=== PATIENT | male | born 1965 | race Caucasian/White ===

== ENCOUNTER → 2017-02-13 | Outpatient (CLI) | payer OTHER ==
--- NOTE | 2017-02-13 14:57 | REP ---
CT ABDOMEN PELVIS WITHOUT IV OR ORAL CONTRAST: Renal stone protocol. HISTORY: Hematuria. Question kidney stones. Right-sided pain. CT FINDINGS: Preliminary digital automat watcher radiograph shows an unremarkable bowel gas pattern. The lung bases show a 3 mm noncalcified pulmonary nodule in the left base on image #7 of 37, series 204 of today's study. Lung bases are otherwise clear. The liver and the spleen are normal in size, homogeneous in texture. Gallbladder is unremarkable. No pancreatic abnormality is observed. No adrenal lesion is seen. The kidneys are morphologically intact. No intrarenal calculus is observed on either side. No hydronephrosis is seen. A normal appendix is seen medial to the cecum. No retroperitoneal mass or adenopathy is observed. Small and large intestinal bowel loops are normal in appearance. Urinary bladder shows mild diffuse bladder wall thickening. No bladder calculus is observed. Prostate and seminal vesicles are unremarkable. No abdominal wall defect is seen. Bone window settings show no significant finding. IMPRESSION: No urinary tract calculus seen. Mild diffuse bladder wall thickening question cystitis. 3 mm noncalcified nodule in the left lower lobe of the lung. If the patient is considered low risk for pulmonary malignancy, no follow-up is required by Fleischner Society criteria. If the patient is considered high risk, a follow-up CT chest could be performed in [address] study abdomen and pelvis without IV contrast. Signed by Dru Lopez MD 02/13/2017 05:22 P
== END ==
LOC: M RAD 14:04
PROVIDERS: ATTEND Physician Assistant
DX: R31.9 Hematuria, unspecified (principal); R91.1 Solitary pulmonary nodule

== ENCOUNTER → 2018-08-08 | Outpatient (CLI) | payer OTHER | LOC: M RAD 19:59 | DX: M25.50 Pain in unspecified joint (principal); J40 Bronchitis, not specified as acute or chronic; M25.78 Osteophyte, vertebrae | CPT/HCPCS: 71046 ==

== ENCOUNTER → 2018-08-19 | Outpatient (CLI) | payer OTHER ==
[~2018-08-19] MED LIST: E-Z-GAS II EFFERVESCENT PACKET (SODIUM BICARB./CITRIC ACID/SIMETHICONE) As Ordered; E-Z-HD 98% w/w 340GM SUSP BTL As Ordered; E-Z-PAQUE 96% w/w SUSP 176GM BTL As Ordered
== END ==
LOC: M RAD 09:10
DX: K44.9 Diaphragmatic hernia without obstruction or gangrene (principal); K21.9 Gastro-esophageal reflux disease without esophagitis; K22.8 Other specified diseases of esophagus
CPT/HCPCS: 74241

== ENCOUNTER → 2018-08-26 | Outpatient (CLI) | payer OTHER ==
--- NOTE | 2018-08-26 10:46 | REP ---
MR LUMBAR SPINE WITHOUT CONTRAST: HISTORY: Back pain. A rudimentary disc is present at the S1-2 level. Decreased signal intensity on T2-weighted images is present in the L2-3 through L5-S1 intervertebral discs. The discs are decreased in height. These findings are consistent with disc degeneration. There is no disc bulge or herniation at the L1-2 level. The L1 nerves exit the neural foramina without compression. A diffuse disc bulge is present at the L2-3 level. There is minimal compression of the thecal sac. The L2 nerves exit the neural foramina without compression. A diffuse disc bulge is present at the L3-4 level. There is minimal compression of the thecal sac. There is hypertrophy of the posterior articulating facets. The L3 nerves exit the neural foramina without compression. A diffuse disc bulge is present at the L4-5 level. There is minimal compression of the thecal sac. There is hypertrophy of the posterior articulating facets. The L4 nerves exit the neural foramina without compression. A diffuse disc bulge and small left paracentral and intraforaminal disc protrusion are present at the L5-S1 level. There is minimal compression of the thecal sac and left S1 nerve as its exits the thecal sac. There is hypertrophy of the posterior articulating facets. The L5 nerves exit the neural foramina without compression. The conus medullaris is normal in appearance terminating at the level of the L2-3 intervertebral disc. Increased signal intensity on T2-weighted images is present in the endplates of the L2-4 vertebral bodies. This represents degenerative change. IMPRESSION: 1. Diffuse disc bulges at the L2-3 through L4-5 levels with minimal thecal sac compression. 2. Diffuse disc bulge and small left paracentral and intraforaminal disc protrusion at the L5-S1 level with minimal compression of the thecal sac and left S1 nerve as it exits the thecal sac. Electronically Signed by Nolberto Verde MD 08/26/2018 10:52 A
== END ==
LOC: M RAD 09:12
PROVIDERS: ATTEND Family Medicine
DX: M51.26 Other intervertebral disc displacement, lumbar region (principal); M51.27 Other intervertebral disc displacement, lumbosacral region

== ENCOUNTER 2019-10-19 17:40 | Emergency (ER) | payer OTHER ==
[~2019-10-19] VITALS: Ht 162.6 cm; Wt 63.1 kg
[2019-10-19] MEDS ORDERED: NS 1,000 ML IV SCH (17:52)
[2019-10-19] MEDS ORDERED: ASPIRIN 81 MG CHEW TABLET PO ONE (18:00)
[2019-10-19] MEDS ORDERED: GI COCKTAIL 50ML BTL(HYOSCYAMINE/MAALOX/LIDOCAINE VISCOUS)(1:3:1) PO ONE (18:00)
--- NOTE | 2019-10-19 18:19 | REP ---
Clinical: Chest pain . Comparison: 08/08/2018 . Technique: PA and lateral. Findings: The mediastinum and cardiac silhouette are normal. The lung ibanez are clear and without acute consolidation, effusion, or pneumothorax. The skeletal structures are intact and normal. Impression: 1. No acute cardiopulmonary process. Electronically Signed by Kelvin Caro MD 10/19/2019 06:11 P
[2019-10-19 18:36] LABS: BASO % 0.4 % (0.0-1.0); EOS # 0.2 10^3/uL (0.0-0.5); EOS % 2.9 % (0.0-3.0); HEMATOCRIT 42.6 % (42.0-52.0); HEMOGLOBIN 14.1 g/dl (13.5-17.5); LYMPH # 2.7 10^3/uL (1.5-5.0); LYMPH % 34.7 % (24.0-44.0); MEAN CORPUSCULAR HEMOGLOBIN 30.9 pg (27.0-33.0); MEAN CORPUSCULAR HGB CONC 33.1 g/dl (32.0-36.5); MEAN CORPUSCULAR VOLUME 93.2 fl (80.0-96.0); MONO # 0.6 10^3/uL (0.0-0.8); NEUTROPHILS # 4.3 10^3/uL (1.5-8.5); NEUTROPHILS % 54.7 % (36.0-66.0); PLATELET COUNT, AUTOMATED 300 10^3/uL (150-450); RED BLOOD COUNT 4.57 10^6/uL (4.30-6.10); WHITE BLOOD COUNT 7.8 10^3/uL (4.0-10.0)
[2019-10-19 18:57] LABS: INR 0.96; PROTHROMBIN TIME 12.4 SECONDS (11.8-14.0)
[2019-10-19 19:06] LABS: ALT/SGPT 29 U/L (12-78); BILIRUBIN,DIRECT 0.1 MG/DL (0.0-0.2); BILIRUBIN,TOTAL 0.5 MG/DL (0.2-1.0); BLOOD UREA NITROGEN 15 MG/DL (7-18); CALCIUM LEVEL 8.9 MG/DL (8.5-10.1); CARBON DIOXIDE LEVEL 27 MEQ/L (21-32); CHLORIDE LEVEL 104 MEQ/L (98-107); CK-MB VALUE MASS 1.9 NG/ML (<3.6); CPK CREATINE PHOSPHOKINASE 149 U/L (39-308); CREATININE FOR GFR 0.81 MG/DL (0.70-1.30); GLOMERULAR FILTRATION RATE > 60.0 (>56); GLUCOSE, FASTING 95 MG/DL (70-100); LIPASE 69 U/L (73-393); MB/CK RELATIVE INDEX 1.28 (< OR =4); NT-PRO BNP 19 PG/ML (<125); POTASSIUM SERUM 4.1 MEQ/L (3.5-5.1); SODIUM LEVEL 139 MEQ/L (136-145); TOTAL PROTEIN 7.1 GM/DL (6.4-8.2); TROPONIN I < 0.02 NG/ML (< 0.10)
--- NOTE | 2019-10-19 19:20 | ECGEPIP ---
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
[2019-10-19 20:10] VITALS: BP 141/69
== END 2019-10-19 20:20 | disposition home or self-care (01) ==
LOC: M ED 17:40
DX: R07.89 Other chest pain (principal); R00.1 Bradycardia, unspecified

== ENCOUNTER 2021-02-26 13:29 | Emergency (ER) | payer OTHER ==
[~2021-02-26] VITALS: Ht 165.1 cm; Wt 60.3 kg
[2021-02-26 13:30] VITALS: BP 150/76
[2021-02-26] MEDS ORDERED: GASTROGRAFIN SOLUTION 30ML (Q9963) As Ordered ONE (14:10)
[2021-02-26] MEDS: GASTROGRAFIN SOLUTION 30ML PO SCH ×2 (14:15→14:45)
[2021-02-26 14:20] LABS: BASO % 0.4 % (0.0-1.0); EOS # 0.2 10^3/uL (0.0-0.5); EOS % 2.5 % (0.0-3.0); HEMATOCRIT 41.5 % (42.0-52.0); LYMPH # 2.7 10^3/uL (1.5-5.0); LYMPH % 36.2 % (24.0-44.0); MEAN CORPUSCULAR HGB CONC 33.7 g/dl (32.0-36.5); MONO # 0.5 10^3/uL (0.0-0.8); MONO % 6.8 % (2.0-8.0); NEUTROPHILS # 4.1 10^3/uL (1.5-8.5); PLATELET COUNT, AUTOMATED 290 10^3/uL (150-450); RED BLOOD COUNT 4.51 10^6/uL (4.30-6.10); WHITE BLOOD COUNT 7.5 10^3/uL (4.0-10.0)
[2021-02-26 14:21] LABS: APPEARANCE, URINE CLEAR (CLEAR); BACTERIA, URINE AUTO NEGATIVE (NEGATIVE); BILIRUBIN, URINE AUTO NEGATIVE (NEGATIVE); BLOOD, URINE BLOOD 1+ (NEGATIVE); COLOR, URINE YELLOW (YELLOW); GLUCOSE, URINE (UA) AUTO NEGATIVE (NEGATIVE); KETONE, URINE AUTO NEGATIVE (NEGATIVE); LEUKOCYTE ESTERASE, URINE AUTO NEGATIVE (NEGATIVE); MUCUS, URINE SMALL (NEGATIVE); NITRITE, URINE AUTO NEGATIVE (NEGATIVE); PROTEIN, URINE AUTO NEGATIVE (NEGATIVE); RBC, URINE AUTO 5 /HPF (0-3); SPECIFIC GRAVITY URINE AUTO 1.014 (1.002-1.035); SQUAMOUS EPITHELIAL CELL UR AU 0 /HPF (0-6); UROBILINOGEN, URINE AUTO 0.2 mg/dL (0.0-2.0); WBC, URINE AUTO 0 /HPF (0-3)
[2021-02-26 14:47] LABS: ALBUMIN 3.8 GM/DL (3.2-5.2); ALT/SGPT 28 U/L (12-78); BILIRUBIN,DIRECT 0.1 MG/DL (0.0-0.2); BILIRUBIN,TOTAL 0.5 MG/DL (0.2-1.0); BLOOD UREA NITROGEN 10 MG/DL (7-18); CALCIUM LEVEL 8.8 MG/DL (8.5-10.1); CARBON DIOXIDE LEVEL 26 MEQ/L (21-32); CHLORIDE LEVEL 106 MEQ/L (98-107); CREATININE FOR GFR 0.86 MG/DL (0.70-1.30); GLOMERULAR FILTRATION RATE > 60.0 (>56); GLUCOSE, FASTING 100 MG/DL (70-100); POTASSIUM SERUM 4.1 MEQ/L (3.5-5.1); SODIUM LEVEL 137 MEQ/L (136-145); TOTAL PROTEIN 6.9 GM/DL (6.4-8.2)
[2021-02-26] MEDS ORDERED: ISOVUE-370 76% 100ML VIAL As Ordered ONE (16:03)
--- NOTE | 2021-02-26 16:58 | REP ---
INDICATION: rectal pain, thin stool r/o mass. COMPARISON: 02/13/2017 a noncontrast enhanced exam TECHNIQUE: Standard helical technique after the intravenous administration of 100 cc Isovue 370. FINDINGS: The lung bases show a small stable nodule in the left lower lobe. There are no pleural or pericardial effusions. In the anterior segment of the right lobe of the liver at the a patent dome there is an intensely enhancing 8 mm sized focus. The liver is otherwise unremarkable the spleen, pancreas, adrenal glands, and kidneys are within normal limits. The abdominal aorta and para-aortic regions are within normal limits. The bowel loops and the mesenteries are within normal limits. The appendix is well visualized and is normal. There is no free fluid or free air. There is no mass or adenopathy. Bone window technique throughout the examination shows no significant change in the imaged osseous structures. IMPRESSION: 1. Stable lung nodule. 2. No evidence of acute intra-abdominal or intrapelvic disease. A negative CT examination does not obviate further evaluation of the colon with colonoscopy since CT cannot rule out a colonic lesion. 3. Intensely enhancing hepatic lesion as described above likely a vascular malformation, however, three-month follow-up is recommended since the prior exam is a noncontrast enhanced exam. <Electronically signed by Wilson Vincent > 02/26/21 [id number]
--- NOTE | 2021-02-28 20:56 | ED PDOC ---
Post-Departure Follow-Up dr currie faxed formal report of ct abd/p for fu Nenita Carver MD Feb 28, 2021 20:56
== END 2021-02-26 17:47 | disposition home or self-care (01) ==
LOC: M ED 13:29
DX: K62.89 Other specified diseases of anus and rectum (principal); F17.200 Nicotine dependence, unspecified, uncomplicated
CPT/HCPCS: 74177; 80048; 80076; 81001; 85025; 99284; Q9967

== ENCOUNTER → 2021-07-20 | Outpatient (CLI) | payer OTHER | LOC: M LABSMTC 10:16 | PROVIDERS: ATTEND Anesthesiology | DX: Z01.812 Encounter for preprocedural laboratory examination (principal); Z20.822 Contact with and (suspected) exposure to COVID-19 ==

== ENCOUNTER 2021-07-25 10:28 | Day surgery (SDC) | payer OTHER ==
[~2021-07-25] VITALS: Ht 162.6 cm; Wt 59.0 kg
[~2021-07-25 10:28] MED LIST changes: -E-Z-GAS II EFFERVESCENT PACKET (SODIUM BICARB./CITRIC ACID/SIMETHICONE) As Ordered; -E-Z-HD 98% w/w 340GM SUSP BTL As Ordered; -E-Z-PAQUE 96% w/w SUSP 176GM BTL As Ordered; +FAMO20TA PO; +MM S100C PO; +NS 1,000 ML IV ONE
--- OUTSIDE RECORDS SUMMARY | 2021-07-25 10:34 | CCD ---
Continuity of Care Document (CCD) Created on: 06/02/2021 Nnamdi Sheehan External Reference #: [id number] : [id number] Sex: Male Author Author Nnamdi LAWRENCE Organization Unknown Address [address] [place] [address] Phone [phone] Care Team Providers Care Engineer Fishing Vessel Name Role Phone [facility] Problems Description No Information Available Social History Type Date Description Comments Sex Unknown ETOH Use Denies alcohol use Tobacco Use Start: Unknown Patient is a current smoker, smo kes every day 1/2 ppd Smoking Status Reviewed: 06/02/21 Patient is a current smoker, smokes every day 1/2 ppd Allergies, Adverse Reactions, Alerts Description No Known Drug Allergies Medications Active Medications SIG Qnty Indications Ordering Provide r Date Lidocaine (Anorectal) 5% Cream apply to affected anal area up to 6 times daily as needed for pain 30gm K6 4.9 Cristino Corbett JR., M.D. 06/02/2021 Hydrocortisone (Perianal) 2.5% Cre am apply sparingly to affected anal area twice daily for one week 30gm K64 .9 Cristino Corbett JR., M.D. 06/02/2021 Immunizations Description No Information Available Vital Signs Date Vital Result Comment 06/02/2021 6:21pm BP Systolic 120 mmHg BP Diastolic 76 mmHg Heart Rate 54 /min Respiratory Rate 18 /min O2 % BldC Oximetry 99 % Body Temperature 98.6 F Weight 135.00 lb Pain Level 8 02/03/2015 5:17pm BP Systolic 122 mmHg BP Diastolic 75 mmHg Heart Rate 52 /min Respiratory Rate 18 /min O2 % BldC Oximetry 97.9 % Body Temperature 97.9 F Weight 120.00 lb Height 65 inches 5'5" BMI (Body Mass Index) 20.0 kg/m2 Pain Level 3 Results Description No Information Available Procedures Date Code Description Status 06/02/2021 13629 Office/Outpatient New Low MDM 30 -44 Minutes Completed Medical Devices Description No Information Available Encounters Type Date Location Provider Dx Diagnosis Office Visit 06/02/2021 4:30p Main Office Asha Mendieta K6 4.9 Unspecified hemorrhoids Assessments Date Code Description Provider 06/02/2021 K64.9 Unspecified hemorrhoids Asha Mendieta Plan of Treatment 06/02/2021 - Deyanira Mendieta.* K64.9 Unspecified hemorrhoids* New Medication:* Lidocaine (Anorectal) 5 % - apply to affected anal area up to 6 times daily as needed for pain * Hydrocortisone (Perianal) 2.5 % - apply sparingly to affected anal area twice daily for one week * Comments:* avoid strainingstool softeners as needed, increase water and fiber intakeSitz bath as neededTopical treatments as prescribedIf pain does not resolve he will need to follow with PCP for referral to gen. surgery Functional Status Description No Information Available Mental Status Description No Information Available Referrals Description No Information Available
--- OUTSIDE RECORDS SUMMARY | 2021-07-25 10:34 | CCD ---
Author Author [facility] Organization [facility] Address Unknown Phone Unavailable Care Team Providers Care Hospice Case Manager Name Role Phone Elroy Francis Unavailable PROBLEMS Type Condition ICD9-CM Code ZZO39-QR Code Onset Dates Condition S tatus W/U Status Risk SNOMED Code Notes Problem Seasonal allergic rhinitis, unspecified allergic rhinitis trigger J30.2 Active confirmed 693453421 Problem Acute non intractable tension-type headache G44.20 9 Active confirmed 336425556 Problem Other chronic pain G89.29 Active confirmed 8 8820586 Problem Smoker F17.200 Active confirmed 74886297 Problem Allergic rhinitis, unspecifi ed allergic rhinitis trigger, unspecified rhinitis seasonality J30.9 Active confirmed [id number] ALLERGIES No Known Allergies ENCOUNTERS from 1965 to 2021-07-21 Encounter Location Date Provider Diagnosis [facility] [address] Floor [phone] [place] [address] Jun, Elroy Francsi IMMUNIZATIONS Vaccine Route Administration Date Status Influenza 6mo & up Fluzone IM Intramuscular Jul 17, 2016 Admi nistered SOCIAL HISTORY Tobacco Use: Social History Observation Description Date Details (start date - stop date) Current Smoker Sex Assigned At : Social History Observation Description Sex Assigned At Unknown Sexual Hx: Question Answer Notes Had sex in the last 12 months (vaginal, oral, or anal)? Yes Have you ever had an STD? No Prevention Strategies discussed: Other with Women only Use protection? No Alcohol Screening: Question Answer Notes Did you have a drink containing alcohol in the past year? Ye s Points 1 Interpretation Negative How often did you have six or more drinks on one occas ion in the past year? Never (0 points) How many drinks did you have on a typica l day when you were drinking in the past year? 1 or 2 (0 points) How often did you have a drink containing alcohol in t he past year? Monthly or less (1 point) Tobacco Use: Question Answer Notes Are you a: current smoker Patient counseled on the dangers of tobacco use and urged to quit: 10/02/2016 How many cigarettes a day do you smoke? 5 or less Are you interested in quitting? Thinking about quitting Counseled the patient on smoking cessation, education provid ed 10/02/2016 REASON FOR REFERRAL No Information VITAL SIGNS No information MEDICATIONS Medication SIG (Take, Route, Frequency, Duration) Notes Start Da te End Date Status Acetaminophen Extra Strength 500 MG 2 tablets as needed Orally ever y 6 hrs Active Cyclobenzaprine HCl 10 MG 1 tablet Orally Three times a day for 30 day(s) Sep, Active Cetirizine HCl 10 MG 1 tablet Orally Before bedtime for 30 day(s ) Jul, Active Flexeril 10 mg 30 10 mg one tablet orally every 8 hours prn pain Jul, Not-Taking Motrin IB 200 MG 1 tablet as needed Orally every 6 hrs Active Gabapentin 300 MG 1 capsule Orally Three times a day for 30 day( s) Sep, Active Chantix Starting Month [place] 0.5 MG X 11 & 1 MG X 42 as directed Orally 0.5 mg daily for 3 days, then 0.5 mg twice daily for 4 days, then 1 mg twice daily thereafter for 30 day(s) Jul, Active Nasacort Allergy 24HR 55 MCG/ACT 1 puff in each nostri l Nasally Before bedtime for 30 day(s) Jul, Active PROCEDURES No Information RESULTS No Results REASON FOR VISIT NEW PATIENT APPOINTMENT MEDICAL (GENERAL) HISTORY Type Description Date Medical History Chronic low back pain Medical History New headaches Goals Section No Information Health Concerns No Information MEDICAL EQUIPMENT No Information MENTAL STATUS No Information FUNCTIONAL STATUS No Information ASSESSMENTS No Information PLAN OF TREATMENT Medication Medication Name Sig Start Date Stop Date Cyclobenzaprine HCl 10 MG 1 tablet Orally Three times a day for 30 day(s) Sep, Gabapentin 300 MG 1 capsule Orally Three times a day for 30 day( s) Sep, Next Appt Details Provider Name:Elroy Francis, 2021-11-18 09:00:00 AM, [address], , [place], [address], Insurance Providers Payer Name Payer Address Payer Phone Insured Name Patient Relati onship to Insured Coverage Start Date Coverage End Date [facility] [employer] [facility] [address] [facility] [phone] DERECK SHEEHAN self
--- OUTSIDE RECORDS SUMMARY | 2021-07-25 10:34 | CCD | Continuity of Care Document ---
Author Author Nnamdi CASTANON Organization Unknown Address [address] [place] [address], [address] [place] [address] Phone [phone] Care Team Providers Care Camp Assistant Name Role Phone Malika Wing M.D. AUTM [phone] Problems Description No Information Available Social History Type Date Description Comments Sex Unknown ETOH Use Denies alcohol use Tobacco Use Start: Unknown 1/2ppd Allergies and adverse reactions Description No Information Available Medications Active Medications SIG Qnty Indications Ordering Provide r Date Miralax 17GM/Scoop Powder 17 gram per dose, mixed with 8 oz water/fluid and to be taken 1 -2 times a day. ( hold or decrease dose if having diarrhea) 238gm K59.00 Branden sanchez M.D. 07/06/2021 Famotidine 20mg Tablets 1 tab by mouth twice a day ( filleter on empty stomach and at bedtime) - take for 6 weeks and then taper off.. 60tabs R19.Tawana Castanon M.D. 1 Preparation H 0.25-88.44% Supposit ory one suppository lennox night at bedtime for 7 days 48units R19.5 Branden Castanon M.D. 07/06/2021 Gavilyte-N With Flavor Pack 420gm Solution Rec drink the liquid as per the pre-procedur e instructions. ( fill this script only if clenpiq is not covered by insurance). 4000ml R19.Tawana Castanon M.D. 07/06/[address] take 4 tablets together as per bowel preparation instructions. 4tabs R19.5 Branden Castanon M.D. 07/06/2021 Immunizations Description No Information Available Vital Signs Date Vital Result Comment 07/06/2021 12:21pm BP Systolic 116 mmHg BP Diastolic 74 mmHg Height 64 inches 5'4" Weight 126.00 lb BMI (Body Mass Index) 21.6 kg/m2 [place] Body Weight 130 lb Weight 57.154 kg BSA (Body Surface Area) 1.61 m2 Results Description No Information Available Procedures Description No Information Available Medical Devices Description No Information Available Encounters Description No Information Available Assessments Date Code Description Provider 07/06/2021 R19.5 Change in stool caliber Moraima Castanon M.D. 07/06/2021 K62.5 Rectal pain Branden Parr ala, M.D. 07/06/2021 K59.00 Constipation Branden Parr ala, M.D. 07/06/2021 R10.13 Epigastric pain Branden Parr ala, M.D. 07/06/2021 Z12.11 Screening for malignant neoplasm of colon Branden Castanon M.D. Plan of Treatment 07/06/2021 - Branden Castanon M.D.* R19.5 Change in stool caliber * K62.5 Rectal pain * K59.00 Constipation * R10.13 Epigastric pain * Z12.11 Screening for malignant neoplasm of colon * * New Medication:* Famotidine 20 mg * Preparation H 0.25-88.44 % * Gavilyte-N With Flavor Pack 420 gm * Dulcolax 5 mg * Comments:* Impression:-- Worsening symptoms of rectal pain, change in stool caliber ( narrow , thin stools) with hemorrhoidal bleeding, prior constipation, symptoms present for the past 1 year and no prior screening Colonoscopy -- Needs further evaluation - DDx-- Rectal polyps vs hemorrhoids vs Diverticular disease vs Cancer-- Epigastric pain with loss of appetie and some subjective weight loss reported by patient -- Needs further evaluation. Functional Status Description No Information Available Mental Status Description No Information Available Referrals Refer to Reason for Referral Status Appt Date Branden Castanon M.D. K59.00 CONSTIPATION Scheduled 08/03/2021 [facility] [address] [facility], [address] [place] [address] [phone]
--- OUTSIDE RECORDS SUMMARY | 2021-07-25 10:34 | CCD ---
Author Author [facility] Organization [facility] Address [address] [place] [address] Phone Care Team Providers Care Bus Transportation Manager Name Role Phone Maciej COOPER, Malika Morales Unavailable [phone] Vlad TODD, Camille Yang Unavailable [phone] Reason for Referral No Reason for Referral Recorded Problems Includes: Active, inactive, and resolved Problems All Visits Onset Date - Time Resolved Date - Time Provider Co ndition Status Bronchitis 08/07/2018 - 12:00AM Malika Wing MD A ctive Note: Unchanged Chest Pain 08/07/2018 - 12:00AM Malika Wing MD A ctive Note: Unchanged Arthralgia 08/07/2018 - 12:00AM Malika Wing MD A ctive Note: Unchanged Lumbago 08/07/2018 - 12:00AM Malika Wing MD A ctive Note: Unchanged Heartburn 08/07/2018 - 12:00AM Malika Wing MD A ctive Note: Unchanged Plan of Treatment Pending Tests Order Diagnosis Results Due Ordering Provi ricco *Labs (Manual) CBC W/ DIFF Other constipation 07/06/21 Malika Wing MD *Labs (Manual) CMP Other constipation 07/06/21 Malika Wing MD *Labs (Manual) FREE T3 Other constipation 07/06/21 Malika Wing MD *Labs (Manual) FREE T4 Other constipation 07/06/21 Malika Wing MD *Labs (Manual) TSH Other constipation 07/06/21 Malika Wing MD *Labs (Manual) H PYLORI ANTIGEN TEST (STOOL) Diaphragma tic hernia without obstruction or gangrene 07/06/21 Malika Wing MD *Labs (Manual) PSA Encounter for screening for ada gnant neoplasm of prostate 07/06/21 Malika Wing MD Care [facility] Future Appointments Date Time Location Provider STANDARD OV 07/20/2021 1:15PM [facility] Gan MD ANNUAL PHYSICAL EXAM 07/27/2021 1:15PM [facility] Boogie MD Assessments Includes: Assessments for all patient encounters Findings Encounter Date Backache EXTENDED VISIT with Malika Wing MD 1 Constipation EXTENDED VISIT with Malika Wing MD 1 Esophageal reflux EXTENDED VISIT with Malika Wing MD 1 External hemorrhoids WENT TO [facility] [place] ,CREAM GIVEN W/C HELPED .HURT IS GONE, "UNCOMFORTABLE" EXTENDED VISIT with Malika Wing MD 06/22/2021 Hiatal hernia EXTENDED VISIT with Malika Wing MD 1 Intervertebral disc degeneration EXTENDED VISIT with Malika Wing MD 06/22/2021 Constipation STANDARD OV with Malika Wing MD 09/2020 Intervertebral disc degeneration STANDARD OV with Malika Wing MD 05/11/2021 Lumbago STANDARD OV with Malika Wing MD 09/2020 Bulging intervertebral disc EXTENDED VISIT with Janina Tejada 08/28/2018 Arthralgia STANDARD OV with Malika Wing MD 12/2017 Cervicalgia STANDARD OV with Malika Wing MD 12/2017 Chronic pain STANDARD OV with Malika Wing MD 12/2017 Lumbar disc degeneration STANDARD OV with Malika Wing MD 08/13/2018 Thoracic disc degeneration STANDARD OV with Malika Wing MD 08/13/2018 Arthralgia NEW PATIENT EVALUATION with Malika webb MD 08/05/2018 Bronchitis NEW PATIENT EVALUATION with Malika webb MD 08/05/2018 Chest pain NEW PATIENT EVALUATION with Malika webb MD 08/05/2018 Heartburn NEW PATIENT EVALUATION with Malika webb MD 08/05/2018 Lumbago NEW PATIENT EVALUATION with Malika webb MD 08/05/2018 Instructions Instructions not supported for this document typeNo Instructions Recorded Medical Equipment - Implanted Devices Includes: Current and historical DevicesNo Medical Equipment Recorded Medications Includes: Current and historical Medications Current Medications (continue as prescribed) Cyclobenzaprine HCl 5 MG Oral Tablet 06/22/2021 - 07/22/2021 Provider: Malika Wing MD Diagnosis: Low back pain Three times a day PRN ProctoCare-HC 2.5% External Cream 06/22/2021 - 07/22/2021 Pr ovider: Malika Wing MD Diagnosis: Residual hemorrhoida l skin tags APPLY TID TO RECTAL AREA Omeprazole 40 MG Oral Capsule Delayed Release 06/22/2021 - 1 10/22/2020 Provider: Malika Wing MD Diagnosis: Other specified dise ases of esophagus 1 Every morning Acetaminophen 500MG Oral Tablet 08/28/2018 Provider : Diagnosis: Past Medications on file Cyclobenzaprine HCl 5MG Oral Tablet 08/28/2018 - 06/22/2021 Provider: Janina Tejada Diagnosis: Low back pain Three times a day Ibuprofen 800MG Oral Tablet 08/28/2018 - 08/28/2018 Provider : Janina Tejada Diagnosis: Cervicalgia TID PRN po Omeprazole 40MG Oral Capsule Delayed Release 08/28/2018 - Provider: Janina Tejada Diagnosis: Other specified dise ases of esophagus 1 tab twice a day FROM QD PredniSONE 20MG Oral Tablet 08/13/2018 - 08/28/2018 Provider : Malika Wing MD Diagnosis: Other intervertebral disc degeneration, thoracic region 2 (40 MG ) QD X 1 WEEK W/ FOOD Ibuprofen 800MG Oral Tablet 08/13/2018 - 08/28/2018 Provider : Malika Wing MD Diagnosis: Cervicalgia TID PRN Tylenol with Codeine #3 300-30MG Oral Tablet 08/05/2018 - Provider: Malika Wing MD Diagnosis: Low back pain 3X A DAY NEEDED FOR SEVERE PAIN MDD 3 Omeprazole 40MG Oral Capsule Delayed Release 08/05/2018 - Provider: Malika Wing MD Diagnosis: Other specified dise ases of esophagus 1 tab twice a day FROM QD Acetaminophen 500MG Oral Tablet 08/05/2018 - 08/28/2018 Prov ider: Diagnosis: Omeprazole 40MG Oral Capsule Delayed Release 08/05/2018 - Provider: Diagnosis: Cefuroxime Axetil 500MG Oral Tablet 08/05/2018 - 08/13/2018 Provider: Diagnosis: Azithromycin 250MG Oral Tablet 08/05/2018 - 08/13/2018 Provi ricco: Malika Wing MD Diagnosis: Bronchitis, not spec ified as acute or chronic 2 DAY 1, 1 DAYS 2-5 Medications Administered Includes: Administered Medications in patient's chartNo Administered Medications Recorded Vital Signs Includes: Vital Signs from 06/22/2020 through 06/22/2021 Vital Name 06/22/2021 08:55A 05/11/2021 09:14A Blood Pressure Sitting R 126/68 BP Cuff Size Regular Regular Pulse Rate-Sitting (bpm) 71 71 Respiration Rate (breaths/min) 24 24 Temp-Tympanic (F) 97.6 97.8 Height (in) 64.25 64.25 Weight (lb) 130 132 Body Mass Index (kg/m2) 22.1 22.5 Body Surface Area (m2) 1.63 1.64 Oxygen Saturation (%) 98 98 Flow Rate (l/min) (None (Room Air)) (None (Room Air)) FiO2 (%) 21 21 Blood Pressure Sitting L 124/66 Results Includes: Results from 06/22/2020 through 06/22/2021No Results Recorded For Specified Dates History of Present Illness History of Present Illness not supported for this document typeNo History of Present Illness Recorded Social History Description Last Updated Not using drugs 08/05/2018 Current smoker 5-7 CIGS QD 08/05/2018 Smoking Status Unknown Procedures and Surgical History Includes: Procedures from 06/22/2020 through 06/22/2021No Procedures For Specified Dates. No Surgical History Recorded Medical History Includes: Medical History in patient's chartNo Medical History Recorded Family History Includes: Family History in patient's chartNo Family History Recorded Review of Systems Review of Systems not supported for this document typeNo Review of Systems Recorded Mental Status Mental Status not supported for this document type Description Oriented to time, place, and person Functional Status Functional Status not supported for this document typeNo Functional Status Recorded Physical Exam Physical Exam not supported for this document typeNo Physical Exam Recorded Immunizations Includes: Immunizations in patient's chartNo Immunizations Recorded Allergies Includes: Active, inactive, and resolved AllergiesNo Known Allergies Encounters Includes: Encounters from 06/22/2020 through 06/22/2021 Encounter Provider Location Date Check-In Time Check-Out Time D iagnosis EXTENDED VISIT Malika Wing MD [facility], 8:53AM 10:15AM Constipation, Hemorrhoids Ex ternal, Backache, Intervertebral Disc Degeneration, Esophageal Reflux, Hiatal Hernia CLINICAL USE ONLY Malika Wing MD [facility], 06/07/2021 05/11/2021 11:34AM 05/11/2021 11:59PM STANDARD OV Malika Wing MD [facility], 021 9:10AM 9:48AM Intervertebral Disc Degeneration, Consti pation, Lumbago Insurance Includes: Active Insurance Policies Plan Name Member ID Group # Subscriber Relationship Effective Da nixon 1 - (AID) [facility] Plan [id number] Kyaw Sheehan Self Advance Directives Includes: Current Advance DirectivesNo Advance Directives Recorded Health Concerns Includes: Active Health ConcernsNo Active Health Concerns Recorded Goals Includes: Active GoalsNo Active Goals Recorded Interventions Includes: Interventions for active GoalsNo Interventions Recorded Evaluations & Outcomes Includes: Evaluations & Outcomes for active GoalsNo Outcomes Recorded
--- OUTSIDE RECORDS SUMMARY | 2021-07-25 10:34 | CCD ---
Author Author [facility] Organization [facility] Address [address] [place] [address] Phone Care Team Providers Care Warehouse Administrative Assistant Name Role Phone Maciej COOPER, Malika Morales Unavailable [phone] Vlad TODD, Camille Yang Unavailable [phone] [...] Home Future Appointments Date Time Location Provider ANNUAL PHYSICAL EXAM 07/27/2021 1:15PM [facility] Boogie MD Assessments Includes: Assessments for all patient encounters Findings Encounter Date Chronic pain [facility] STANDARD OV with Malika Wing MD 07/20/2021 Constipation STANDARD OV with Malika Wing MD 07/11 Esophageal reflux STANDARD OV with Malika Wing MD 07/11 External hemorrhoids STANDARD OV with Malika Wing MD 06/2021 Hiatal hernia STANDARD OV with Malika Wing MD 07/11 Nicotine dependence uncomplicated STANDARD OV with Malika Wing MD 07/20/2021 Backache EXTENDED VISIT with Malika Wing MD 1 Constipation EXTENDED VISIT with Malika Wing MD 1 Esophageal reflux EXTENDED VISIT with Malika Wing MD 1 External hemorrhoids WENT TO [facility] [place] ,CREAM GIVEN W/C HELPED .HURT IS GONE, [...] historical Medications Current Medications (continue as prescribed) Mucinex 600 MG Oral Tablet Extended Release 12 Hour 07/20/20 21 - 08/19/2021 Provider: Malika Wing MD Diagnosis: Nicotine dependence, cigarettes, uncomplicated 1 tab twice a day Cyclobenzaprine HCl 5 MG Oral Tablet 06/22/2021 [...] Tablet 08/28/2018 - 08/28/2018 Provider : Janina Yin MACHINE MAINTENANCE SUPERVISOR Diagnosis: Cervicalgia TID PRN po Omeprazole 40MG Oral Capsule Delayed Release 08/28/2018 - Provider: Janina SimpsonP Diagnosis: Other specified dise ases of esophagus 1 tab twice a day FROM QD Ibuprofen 800MG Oral Tablet 08/13/2018 - 08/28/2018 Provider : Malika Wing MD Diagnosis: Cervicalgia TID PRN PredniSONE 20MG Oral Tablet 08/13/2018 - 08/28/2018 Provider : Malika Wing MD Diagnosis: Other intervertebral disc degeneration, thoracic region 2 (40 MG ) QD X 1 WEEK W/ FOOD Azithromycin 250MG Oral Tablet 08/05/2018 - 08/13/2018 Provi ricco: Malika Wing MD Diagnosis: Bronchitis, not spec ified as acute or chronic 2 DAY 1, 1 DAYS 2-5 Tylenol with Codeine #3 300-30MG Oral Tablet [...] Oral Tablet 08/05/2018 - 08/13/2018 Provider: Diagnosis: Medications Administered Includes: Administered Medications in patient's chartNo Administered Medications Recorded Vital Signs Includes: Vital Signs from 07/20/2020 through 07/20/2021 Vital Name 07/20/2021 01:10P 06/22/2021 08:55A 05/11/2021 0 9:14A Blood Pressure Sitting L 130/72 124/66 BP Cuff Size Regular Regular Regular Pulse Rate-Sitting (bpm) 81 71 71 Respiration Rate (breaths/min) 22 24 2 4 Temp-Oral (F) 97.6 Height (in) 64.25 64.25 64.25 Weight (lb) 129 130 132 Body Mass Index (kg/m2) 22.0 22.1 22.5 Body Surface Area (m2) 1.63 1.63 1.64 Oxygen Saturation (%) 98 98 98 Flow Rate (l/min) (None (Room Air)) (None (Room Air)) (None ( Room Air)) FiO2 (%) 21 21 21 Blood Pressure Sitting R 126/68 Temp-Tympanic (F) 97.6 97.8 Results Includes: Results from 07/20/2020 through 07/20/2021No Results Recorded For Specified Dates History of Present Illness History of Present Illness not supported for this document typeNo History of Present Illness Recorded Social History Description Last Updated Current smoker 10 CIGS QD 07/20/2021 Not using alcohol 07/20/2021 Not using drugs 08/05/2018 Smoking Status Unknown Procedures and Surgical History Includes: Procedures from 07/20/2020 through 07/20/2021No Procedures For Specified Dates. No Surgical History [...] AllergiesNo Known Allergies Encounters Includes: Encounters from 07/20/2020 through 07/20/2021 Encounter Provider Location Date Check-In Time Check-Out Time D iagnosis STANDARD OV Malika Wing MD [facility] 021 1:02PM 06/22/2021 11:59PM Constipation, Hemorrhoids External, Esop hageal Reflux, Hiatal Hernia, Chronic Pain, Nicotine Dependence Uncomplicated EXTENDED VISIT Malika Wing MD [facility] 8:53AM 10:15AM Constipation, Hemorrhoids Ex ternal, Backache, Intervertebral Disc Degeneration, Esophageal Reflux, Hiatal Hernia CLINICAL USE ONLY Malika Wing MD [facility] 06/07/2021 05/11/2021 11:34AM 05/11/2021 11:59PM STANDARD OV Malika Wing MD [facility] 021 9:10AM 9:48AM Intervertebral Disc Degeneration, Consti pation, Lumbago Insurance Includes: Active Insurance Policies Plan Name Member ID Group # Subscriber Relationship Effective Da nixon 1 - (AID) [facility] Plan [id number] Kyaw Sheehan Self Advance Directives Includes: Current Advance DirectivesNo Advance Directives Recorded Health Concerns Includes: Active Health ConcernsNo Active Health Concerns Recorded Goals Includes: Active GoalsNo Active Goals Recorded Interventions Includes: Interventions for active GoalsNo Interventions Recorded Evaluations & Outcomes Includes: Evaluations & Outcomes for active GoalsNo Outcomes Recorded
--- OUTSIDE RECORDS SUMMARY | 2021-07-25 10:34 | CCD | Continuity of Care Document ---
Author Author Nnamdi LAWRENCE Organization Unknown Address [address] [place] [id number] Phone [phone] Care Team Providers Care Critical Care Unit Manager Name Role Phone [facility] Problems Description No Information Available [...] Available Procedures Date Code Description Status 06/02/2021 56934 Office/Outpatient New Low MDM 30 -44 Minutes [...]
--- OUTSIDE RECORDS SUMMARY | 2021-07-25 10:34 | CCD ---
Author Author [facility] Organization [facility] Address [address] [place] [address] Phone Care Team Providers Care Economic Development Manager Name Role Phone Maciej COOPER, Malika Morales Unavailable [phone] Reason for Referral No Reason for Referral [...] Order Diagnosis Results Due Ordering Provi ricco Therapy - Physical Therapy Neck Low back pain 08/05/18 Malika Wing MD Therapy - Physical Therapy Back Low back pain 08/05/18 Malika Wing MD X-RAY Spine Thoracic X-Ray Pain in unspecified joint 8 Malika Wing MD X-RAY Spine Cervical X-Ray Pain in unspecified joint 8 Malika Wing MD X-RAY Upper GI with barium swallow Other specified dis eases of esophagus 08/19/18 Malika Wing MD MRI Spine Lumbar MRI Low back pain 08/19/18 Malika Wing MD X-RAY Spine Cervical X-Ray Cervicalgia 08/27/18 Malika Wing MD *Labs (Manual) CBC Pain in unspecified joint 08/27/18 Malika Wing MD *Labs (Manual) CMP Pain in unspecified joint 08/27/18 Malika Wing MD *Labs (Manual) ADNA, BRUNO Pain in unspecified joint 08/27/18 Malika Wing MD *Labs (Manual) ESR Pain in unspecified joint 08/27/18 Malika Wing MD *Labs (Manual) C REACTIVE PROTEIN Pain in unspecified joint 8 Malika Wing MD *Labs (Manual) DSDNA Pain in unspecified joint 08/27/18 Malika Wing MD *Labs (Manual) ANTI CCP Pain in unspecified joint 08/27/18 Malika Wing MD *Labs (Manual) URIC ACID Pain in unspecified joint 08/27/18 Malika Wing MD Assessments Includes: Assessments for all patient encounters Findings Encounter Date Constipation STANDARD OV with Malika Wing MD [...] historical Medications Current Medications (continue as prescribed) Omeprazole 40MG Oral Capsule Delayed Release 08/28/2018 Provider: Janina Tejada Diagnosis: Other specified dise ases of esophagus 1 tab twice a day FROM QD Acetaminophen 500MG Oral Tablet 08/28/2018 Provider : Diagnosis: Past Medications on file Cyclobenzaprine HCl 5MG Oral Tablet 08/28/2018 - 09/27/2018 Provider: Janina Tejada Diagnosis: Low back pain Three times a day Ibuprofen 800MG Oral Tablet 08/28/2018 - 08/28/2018 Provider : Janina Tejada Diagnosis: Cervicalgia TID PRN po PredniSONE 20MG Oral Tablet 08/13/2018 - 08/28/2018 Provider : Malika Wing MD Diagnosis: Other intervertebral disc degeneration, thoracic region 2 (40 MG ) QD X 1 WEEK W/ FOOD Ibuprofen 800MG Oral Tablet 08/13/2018 - 08/28/2018 Provider : Malika Wing MD Diagnosis: Cervicalgia TID PRN Cefuroxime Axetil 500MG Oral Tablet 08/05/2018 - 08/13/2018 Provider: Diagnosis: Omeprazole 40MG Oral Capsule Delayed Release 08/05/2018 - Provider: Diagnosis: Acetaminophen 500MG Oral Tablet 08/05/2018 - 08/28/2018 Prov ider: Diagnosis: Omeprazole 40MG Oral Capsule Delayed Release 08/05/2018 - Provider: Malika Wing MD Diagnosis: Other specified dise ases of esophagus 1 tab twice a day FROM QD Tylenol with Codeine #3 300-30MG Oral Tablet 08/05/2018 - Provider: Malika Wing MD Diagnosis: Low back pain 3X A DAY NEEDED FOR SEVERE PAIN MDD 3 Azithromycin 250MG Oral Tablet 08/05/2018 - 08/13/2018 Provi ricco: Malika Wing MD Diagnosis: Bronchitis, not spec ified as acute or chronic 2 DAY 1, 1 DAYS 2-5 Medications Administered Includes: Administered Medications in patient's chartNo Administered Medications Recorded Vital Signs Includes: Vital Signs from 05/11/2020 through 05/11/2021 Vital Name 05/11/2021 09:14A Blood Pressure Sitting L 124/66 BP Cuff Size Regular Pulse Rate-Sitting (bpm) 71 Respiration Rate (breaths/min) 24 Temp-Tympanic (F) 97.8 Height (in) 64.25 Weight (lb) 132 Body Mass Index (kg/m2) 22.5 Body Surface Area (m2) 1.64 Oxygen Saturation (%) 98 Flow Rate (l/min) (None (Room Air)) FiO2 (%) 21 Results Includes: Results from 05/11/2020 through 05/11/2021No Results Recorded For Specified Dates History of Present Illness History of Present Illness not supported for this document typeNo History of Present Illness Recorded Social History Description Last Updated Not using drugs 08/05/2018 Current smoker 5-7 CIGS QD 08/05/2018 Smoking Status Unknown Procedures and Surgical History Includes: Procedures from 05/11/2020 through 05/11/2021No Procedures For Specified Dates. No Surgical History Recorded Medical History Includes: Medical History in patient's chartNo Medical History Recorded Family History Includes: Family History in patient's chartNo Family History Recorded Review of Systems Review of Systems not supported for this document typeNo Review of Systems Recorded Mental Status Mental Status not supported for this document typeNo Mental Status Recorded Functional Status Functional Status not supported for this document typeNo Functional Status Recorded Physical Exam Physical Exam not supported for this document typeNo Physical Exam Recorded Immunizations Includes: Immunizations in patient's chartNo Immunizations Recorded Allergies Includes: Active, inactive, and resolved AllergiesNo Known Allergies Encounters Includes: Encounters from 05/11/2020 through 05/11/2021 Encounter Provider Location Date Check-In Time Check-Out Time D iagnosis STANDARD OV Malika Wing MD [facility] 021 9:10AM 08/28/2018 11:59PM Intervertebral Disc Degeneration, Consti pation, Lumbago Insurance Includes: Active Insurance Policies Plan Name Member ID Group # Subscriber Relationship Effective Da nixon 1 - (AID) [facility] Community Plan [id number] Kyaw y Sissy Self Advance Directives Includes: Current Advance DirectivesNo Advance Directives Recorded Health Concerns Includes: Active Health ConcernsNo Active Health Concerns Recorded Goals Includes: Active GoalsNo Active Goals Recorded Interventions Includes: Interventions for active GoalsNo Interventions Recorded Evaluations & Outcomes Includes: Evaluations & Outcomes for active GoalsNo Outcomes Recorded
--- OUTSIDE RECORDS SUMMARY | 2021-07-25 10:35 | CCD ---
Author Author [facility] Organization [facility] Address Unknown Phone Unavailable Care Team Providers Care Front End Specialist Name Role Phone Marta Wing MD Unavailable Unavailable Maciej, Marta Daly MD Unavailable Unavailable Maciej, Marta Daly MD Unavailable Unavailable Maciej, Marta aDly MD Unavailable Unavailable Maciej, Marta Daly MD Unavailable Unavailable Maciej, Marta Daly MD Unavailable Unavailable Maciej, Marta Daly MD Unavailable Unavailable Maciej, Marta Daly MD Unavailable Unavailable Maciej, Marta Daly MD Unavailable Unavailable Maciej, Marta Daly MD Unavailable Unavailable Maciej, Marta Daly MD Unavailable Unavailable Maciej, Marta Daly MD Unavailable Unavailable Maciej, Marta Daly MD Unavailable Unavailable Maciej, Marta Daly MD Unavailable Unavailable Maciej, Marta Daly MD Unavailable Unavailable Maciej, Marta Daly MD Unavailable Unavailable Maciej, Marta Daly MD Unavailable Unavailable Maciej, Marta Daly MD Unavailable Unavailable Maciej, Marta Daly MD Unavailable Unavailable Maciej, Marta Daly MD Unavailable Unavailable Maciej, Marta Daly MD Unavailable Unavailable Maciej, Marta Daly MD Unavailable Unavailable Maciej, Marta Daly MD Unavailable Unavailable Maciej, Marta Daly MD Unavailable Unavailable Maciej, Marta Daly MD Unavailable Unavailable Maciej, Marta Daly MD Unavailable Unavailable Maciej, Marta Daly MD Unavailable Unavailable Maciej, Marta Daly MD Unavailable Unavailable Maciej, Marta Daly MD Unavailable Unavailable Maciej, Marta Daly MD Unavailable Unavailable Maciej, Marta Daly MD Unavailable Unavailable Maciej, Marta Daly MD Unavailable Unavailable Maciej, Marta Daly MD Unavailable Unavailable Maciej, Marta Daly MD Unavailable Unavailable Maciej, Marta Daly MD Unavailable Unavailable Maciej, Marta Daly MD Unavailable Unavailable Maciej, Marta Daly MD Unavailable Unavailable Maciej, Marta Daly MD Unavailable Unavailable Maciej, Marta Daly MD Unavailable Unavailable Maciej, Marta Daly MD Unavailable Unavailable Maciej, Marta Daly MD Unavailable Unavailable Maciej, Marta Daly MD Unavailable Unavailable Maciej, Marta Daly MD Unavailable Unavailable Maciej, Marta Daly MD Unavailable Unavailable Maciej, Marta Daly MD Unavailable Unavailable Maciej, Marta Daly MD Unavailable Unavailable Maciej, Marta Daly MD Unavailable Unavailable Maciej, Marta Daly MD Unavailable Unavailable Maciej, Marta Daly MD Unavailable Unavailable Maciej, Marta Daly MD Unavailable Unavailable Maciej, Marta Daly MD Unavailable Unavailable Maciej, Marta Daly MD Unavailable Unavailable Maciej, Marta Daly MD Unavailable Unavailable Maciej, Marta Daly MD Unavailable Unavailable Maciej, Marta Daly MD Unavailable Unavailable Maciej, Marta Daly MD Unavailable Unavailable Maciej, Marta Daly MD Unavailable Unavailable Maciej, Marta Daly MD Unavailable Unavailable Maciej, Marta Daly MD Unavailable Unavailable Maciej, Marta Daly MD Unavailable Unavailable Maciej, Marta Daly MD Unavailable Unavailable Maciej, Marta Daly MD Unavailable Unavailable Maciej, Marta Daly MD Unavailable Unavailable Maciej, Marta Daly MD Unavailable Unavailable Maciej, Marta Daly MD Unavailable Unavailable Maciej, Marta Daly MD Unavailable Unavailable Maciej, Marta Daly MD Unavailable Unavailable Maciej, Marta Daly MD Unavailable Unavailable Maciej, Marta Daly MD Unavailable Unavailable Maciej, Marta Daly MD Unavailable Unavailable Maciej, Marta Daly MD Unavailable Unavailable Maciej, Marta Daly MD Unavailable Unavailable Maciej, Marta Daly MD Unavailable Unavailable Maciej, Marta Daly MD Unavailable Unavailable Maciej, Marta Daly MD Unavailable Unavailable Maciej, Marta Daly MD Unavailable Unavailable Maciej, Marta Daly MD Unavailable Unavailable MELINDA, CHIOMA PA Unavailable Unavailable MELINDA, CHIOMA PA Unavailable Unavailable MELINDA, CHIOMA PA Unavailable Unavailable MELINDA, CHIOMA PA Unavailable Unavailable MELINDA, CHIOMA PA Unavailable Unavailable MELINDA, CHIOMA PA Unavailable Unavailable MELINDA, CHIOMA PA Unavailable Unavailable MELINDA, CHIOMA PA Unavailable Unavailable MELINDA, CHIOMA PA Unavailable Unavailable MELINDA, CHIOMA PA Unavailable Unavailable MELINDA, CHIOMA PA Unavailable Unavailable MELINDA, CHIOMA PA Unavailable Unavailable MELINDA, CHIOMA PA Unavailable Unavailable MELINDA, CHIOMA PA Unavailable Unavailable MELINDA, CHIOMA PA Unavailable Unavailable MELINDA, CHIOMA PA Unavailable Unavailable MELINDA, CHIOMA PA Unavailable Unavailable MELINDA, CHIOMA PA Unavailable Unavailable MELINDA, CHIOMA PA Unavailable Unavailable MELINDA, CHIOMA PA Unavailable Unavailable MELINDA, CHIOMA PA Unavailable Unavailable MELINDA, CHIOMA PA Unavailable Unavailable MELINDA, CHIOMA PA Unavailable Unavailable MELINDA, CHIOMA PA Unavailable Unavailable MELINDA, CHIOMA PA Unavailable Unavailable MELINDA, CHIOMA PA Unavailable Unavailable MELINDA, CHIOMA PA Unavailable Unavailable MELINDA, CHIOMA PA Unavailable Unavailable MELINDA, CHIOMA PA Unavailable Unavailable MELINDA, CHIOMA PA Unavailable Unavailable MELINDA, CHIOMA PA Unavailable Unavailable MELINDA, CHIOMA PA Unavailable Unavailable MELINDA, CHIOMA PA Unavailable Unavailable MELINDA, CHIOMA PA Unavailable Unavailable MELINDA, CHIOMA PA Unavailable Unavailable MELINDA, CHIOMA PA Unavailable Unavailable Darien Otero Unavailable [phone] Darien Otero Unavailable [phone] Darien Otero Unavailable [phone] Darien Otero Unavailable [phone] Darien Otero Unavailable [phone] Darien Otero Unavailable [phone] Re-disclosure Warning The records that you are about to access may contain information from federally-assisted alcohol or drug abuse programs. If such information is present, then the following federally mandated warning applies: This information has been disclosed to you from records protected by federal confidentiality rules (42 CFR part 2). The federal rules prohibit you from making any further disclosure of this information unless further disclosure is expressly permitted by the written consent of the person to whom it pertains or as otherwise permitted by 42 CFR part 2. A general authorization for the release of medical or other information is NOT sufficient for this purpose. The Federal rules restrict any use of the information to criminally investigate or prosecute any alcohol or drug abuse patient.The records that you are about to access may contain highly sensitive health information, the redisclosure of which is protected by Article 27-F of the [facility] Public Health law. If you continue you may have access to information: Regarding HIV / AIDS; Provided by facilities licensed or operated by the [facility] Office of Mental Health; or Provided by the [facility] Office for People With Developmental Disabilities. If such information is present, then the following [facility] mandated warning applies: This information has been disclosed to you from confidential records which are protected by state law. State law prohibits you from making any further disclosure of this information without the specific written consent of the person to whom it pertains, or as otherwise permitted by law. Any unauthorized further disclosure in violation of state law may result in a fine or correction sentence or both. A general authorization for the release of medical or other information is NOT sufficient authorization for further disc losure. Family History Family Member Name Family Member Gender Family Member Status Date o f Status Description Data Source(s) Unknown Male Problem MEDENT ([facility] ) Encounters Encounter Providers Location Date Indications Data Source(s ) Unknown [address] [facility] [address] 07/04/2021 12:00:00 AM EDT eCW1 ([facility]) Outpatient<td ID="encounterTypeDescripti onID0">EXTENDED VISIT</td><td>Malika Wing MD</td><td>Family Medicine [facility]</td><td>06/22/2021</td><td>8:53AM</td><td>10:15AM</td><td><content ID="encounterDiagnosisID0-0">Constipation</content>, <content ID="encounterDiagnosisID0-1">Hemorrhoids External</content>, <content ID="encounterDiagnosisID0-2">Backache</content>, <content ID="encounterDiagnosisID0-3">Intervertebral Disc Degeneration</content>, <content ID="encounterDiagnosisID0-4">Esophageal Reflux</content>, <content ID="encounterDiagnosisID0-5">Hiatal Hernia</content></td> Attender: Malika Wing MD [facility], 06/22/2021 08:53:00 AM EDT - 06/22/2021 10:15:00 AM EDT Hiatal HerniaEsophageal RefluxInterverte bral Disc DegenerationHemorrhoids ExternalConstipationBackache ANNETTA ([facility]) Hiatal Hernia Esophageal Reflux Intervertebral Disc Degeneration Hemorrhoids External Constipation Backache Outpatient Attender: CHIOMA ramirez 06/02/2021 04:30:00 PM EDT MEDENT ([facility]) <td ID="encounterTypeDescriptionID1">CLI NICAL USE ONLY</td><td>Malika Wing MD</td><td>[facility]</td><td>06/07/2021</td><td>05/11/2021 11:34AM</td><td>05/11/2021 11:59PM</td><td></td>Outpatient Attender: Malika Wing MD [facility] 05/11/2021 11:34:00 AM EDT - 05/11/2021 11:59:00 PM EDT ANNETTA ([facility]) <td ID="encounterTypeDescriptionID2">STA NDARD OV</td><td>Malika Wing MD</td><td>[facility]</td><td>05/11/2021</td><td>9:10AM</td><td>9:48AM</td><td><content ID="encounterDiagnosisID2-0">Intervertebral Disc Degeneration</content>, <content ID="encounterDiagnosisID2-1">Constipation</content>, <content ID="encounterDiagnosisID2-2">Lumbago</content></td>Outpatient Attender: Malika Wing MD [facility] 05/11/2021 09:10:00 AM EDT - 05/11/2021 09:48:00 AM EDT ConstipationIntervertebral Disc DegenerationConstipationIntervertebral Disc DegenerationLumbagoLumbago SENATOBIA ([facility]) Constipation Intervertebral Disc Degeneration Constipation Intervertebral Disc Degeneration Lumbago Lumbago Outpatient Attender: Darien Otero 02/21 07:03:03 PM EDT - 02/21/2021 07:16:30 PM EDT DocuTap ([facility] ) Immunizations Vaccine Date Status Description Data Source(s) COVID-19 VACCINE Moderna 04/28/2021 12:00:00 AM EDT completed NYSIIS Vaccine Series Complete: YESThis Data wa s Submitted to [facility] Via [employer]. COVID-19 VACCINE Moderna 01/11/2021 12:00:00 AM EDT completed NYSIIS Vaccine Series Complete: NOThis Data was Submitted to [facility] [employer]. Medications Medication Brand Name Start Date Product Form Dose Route Admi nistrative Instructions Pharmacy Instructions Status Indications Reaction Description Data Source(s) Famotidine 20 MG Oral Tablet Famotidine 07/06/2021 12:00:00 AM EDT ORAL active MEDENT ([facility], ) cocoa butter 0.884 MG/MG / Phenylephrine Hydrochloride 0.0025 MG/MG Rectal Suppository Preparation H 07/06/2021 12:00:00 AM EDT active MEDENT ([facility], ) POLYETHYLENE GLYCOL 3350 142 MG/ML Oral Solution [Miralax] M iralax 07/06/2021 12:00:00 AM [facility] Bisacodyl 5 MG Delayed Release Oral Tablet [Dulcolax] Dulcol ax 07/06/2021 12:00:00 AM EDT active EDENT ([facility], ) POLYETHYLENE GLYCOL 3350 105 MG/ML / Pot assium Chloride 0.19790 MEQ/ML / Sodium Bicarbonate 0.017 MEQ/ML / Sodium Chloride 0.0479 MEQ/ML Oral Solution [GaviLyte-N] Gavilyte-N With Flavor Pack 07/06/2021 12:00:00 AM EDT active MEDENT ([facility], ) Omeprazole 40 MG Delayed Release Oral Ca psule Omeprazole 40 MG Oral Capsule Delayed Release Omeprazole 40 MG Oral Capsule Delayed Release 06/22/20 12:00:00 AM EDT 1 active omeprazole 40 MG Delayed Release Oral Capsule ANNETTA ([facility]) Cyclobenzaprine hydrochloride 5 MG Oral Tablet Cyclobenzaprine HCl 5 MG Oral Tablet Cyclobenzaprine HCl 5 MG Oral Tablet 06/22/2021 12:00:00 AM EDT 1 active cyclobenzaprine hydrochlorid e 5 MG Oral Tablet ANNETTA ([facility]) ProctoCare-HC 2.5% External Cream ProctoCare-HC 2.5% Externa l Cream 06/22/2021 12:00:00 AM EDT active ProctoCa re-HC ANNETTA ([facility]) Hydrocortisone 25 MG/ML Rectal Cream Hydrocortisone (Periana l) 06/02/2021 12:00:00 AM EDT active M EDENT ([facility], [facility]) Lidocaine 50 MG/ML Topical Cream Lidocaine (Anorectal) 06/02 12:00:00 AM EDT active MEDENT ([facility], [facility]) Cyclobenzaprine hydrochloride 5 MG Oral Tablet Cyclobenzaprine HCl 5MG Oral Tablet Cyclobenzaprine HCl 5MG Oral Tablet 08/28/2018 12:00:00 AM EST 1 aborted cyclobenzaprine hydrochloride 5 MG Oral Tablet NANETTA ([facility]) Omeprazole 40 MG Delayed Release Oral Ca psule Omeprazole 40MG Oral Capsule Delayed Release Omeprazole 40MG Oral Capsule Delayed Release 8 12:00:00 AM EST aborted omeprazole 40 M G Delayed Release Oral Capsule ANNETTA ([facility]) Insurance Providers Payer name Policy type / Coverage type Policy ID Covered green party ID Covered green party's relationship to ramirez Policy Ramirez Plan Information [facility] Commercial [id number] Self [id number] [facility] Commercial [id number] Self [id number] [facility] I [id number] Self [id number] [facility] [id number] SP [id number] [facility] Commercial [employer]. [id number] Self [id number] [facility] Other 0 [id number] Self 0 [facility] Other 0 [id number] Self 0 [facility] PL[facility] XIX [id number] 18 [id number] [facility] [id number] SP [id number] [facility] [id number] SP [id number] [facility] [id number] SP [id number] [facility] Other 0 [id number] Self 0 [facility] O [id number] S [id number] [facility] Other 0 [id number] Self 0 [facility] Other 0 [id number] Self 0 Problems, Conditions, and Diagnoses No Information Surgeries/Procedures Procedure Description Date Indications Data Source(s) OFFICE OUTPATIENT NEW 30 MINUTES 06/02/2021 12:00:00 A [facility] Results No Information Social History No Information Vital Signs ID Date Data Source UNK Name Value Range Interpretation Code Description Data Source(s) Systolic blood pressure 116 mm[Hg] 116 mm[Hg] M EDENT ([facility], ) Diastolic blood pressure 74 mm[Hg] 74 mm[Hg] [facility] Body height 64 [in_i] 64 [in_i] [facility] ([facility]) 5'4" Body weight 126.00 [lb_av] 126.00 [lb_av] ESTEFANIAEN T ([facility]) Body mass index (BMI) [Ratio] 21.6 kg/m2 21.6 k g/m2 [facility] ([facility]) [place] body weight 130 [lb_av] 130 [lb_av] MEDEN T ([facility]) Body weight 57.154 kg 57.154 kg [facility] ([facility]) Body surface area Derived from formula 1.61 m2 1.61 m2 [facility] ([facility]) Systolic blood pressure 126 mm[Hg] 126 mm[Hg] G REENWAY ([facility]) Diastolic blood pressure 68 mm[Hg] 68 mm[Hg] SENATOBIA ([facility]) Heart rate 71 /min 71 /min ANNETTA ([facility]) Respiratory rate 24 /min 24 /min [facility] ([facility]) Body temperature 97.6 [degF] 97.6 [degF] [facility] ([facility]) Body height 64.25 [in_i] 64.25 [in_i] S[facility]ATOBIA ([facility]) Body weight 130 [lb_av] 130 [lb_av] SENATOBIA ([facility]) Body mass index (BMI) [Ratio] 22.1 kg/m2 22.1 k g/m2 [facility] ([facility]) Body surface area Derived from formula 1.63 m2 1.63 m2 [facility] ([facility]) Oxygen saturation in Arterial blood by Pulse oximetry 98 % 98 % S[facility]IA ([facility]) Inhaled oxygen flow rate 0 L/min 0 L/min [facility]IA ([facility]) Inhaled oxygen concentration 21 % 21 % [facility] ([facility]) Systolic blood pressure 120 mm[Hg] 120 mm[Hg] M EDENT ([facility], [facility]) Diastolic blood pressure 76 mm[Hg] 76 mm[Hg] MEDENT ([facility], [facility]) Heart rate 54 /min 54 /min MEDENT ([facility], [facility]) Respiratory rate 18 /min 18 /min [facility]) Oxygen saturation in Arterial blood by Pulse oximetry 99 % 99 % [facility]) Body temperature 98.6 [degF] 98.6 [degF] MEDENT ([facility], [facility]) Body weight 135.00 [lb_av] 135.00 [lb_av] MEDEN T ([facility], [facility]) Body mass index (BMI) [Ratio] 22.5 kg/m2 22.5 k g/m2 SENATOBIA ([facility]) Diastolic blood pressure 66 mm[Hg] 66 mm[Hg] ANNETTA ([facility]) Systolic blood pressure 124 mm[Hg] 124 mm[Hg] [facility] Heart rate 71 /min 71 /min SENATOBIA ([facility]) Respiratory rate 24 /min 24 /min S[facility]IA ([facility]) Body temperature 97.8 [degF] 97.8 [degF] [facility] ([facility]) Body height 64.25 [in_i] 64.25 [in_i] SENATOBIA ([facility]) Body weight 132 [lb_av] 132 [lb_av] SENATOBIA ([facility]) Body surface area Derived from formula 1.64 m2 1.64 m2 S[facility]ATOBIA ([facility]) Oxygen saturation in Arterial blood by Pulse oximetry 98 % 98 % SENATOBIA ([facility]) Inhaled oxygen flow rate 0 L/min 0 L/min SENATOBIA ([facility]) Inhaled oxygen concentration 21 % 21 % [facility]AT[facility]IA ([facility]) Patient Treatment Plan of Care Planned Activity Planned Date Details Description Data Source (s) Omeprazole 40 MG Delayed Release Oral Capsule 06/22/2021 12:00:00 A M EDT [facility]) ProctoCare-HC 2.5% External Cream 06/22/2021 12:00:00 AM EDT [facility] ([facility]) Cyclobenzaprine hydrochloride 5 MG Oral Tablet 06/22/2021 12:00:00 AM EDT [facility]) Omeprazole 40 MG Delayed Release Oral Capsule 08/28/2018 12:00:00 A M [facility] ([facility]) Cyclobenzaprine hydrochloride 5 MG Oral Tablet 08/28/2018 12:00:00 AM [facility])
[2021-07-25] MEDS ORDERED: fentaNYL 100 MCG/2 ML INJECTION (J3010) As Ordered ONE (11:53)
[2021-07-25] MEDS ORDERED: propofoL 200 MG/20 ML VIAL As Ordered ONE (11:53)
[2021-07-25] MEDS ORDERED: LIDOCAINE 2% 100MG/5ML SDV (FOR ANES.) As Ordered ONE (11:53)
[2021-07-25] MEDS ORDERED: ePHEDrine SULFATE 25 MG/5 ML(5MG/ML) SYRINGE As Ordered ONE (13:04)
--- NOTE | 2021-07-25 13:21 | ROOR ---
Patient Name: Nnamdi Sheehan Procedure Date: 07/25/2021 12:47 PM Date of : 1965 Age: 55 Room: [facility] Gender: Male Note Status: Finalized Procedure: Upper GI endoscopy Indications: Epigastric abdominal pain, Dyspepsia Providers: Branden Jaeger MD Referring MD: ROLA MICHAEL MD Requesting Provider: Medicines: Monitored Anesthesia Care Complications: No immediate complications. Procedure: Pre-Anesthesia Assessment: - Prior to the procedure, a History and Physical was performed, and patient medications and allergies were reviewed. The patient is competent. The risks and benefits of the procedure and the sedation options and risks were discussed with the patient. All questions were answered and informed consent was obtained. Patient identification and proposed procedure were verified by the physician, the nurse and the anesthesiologist in the procedure room. Mental Status Examination: alert and oriented. Airway Examination: normal oropharyngeal airway and neck mobility. Respiratory Examination: clear to auscultation. CV Examination: normal. Prophylactic Antibiotics: The patient does not require prophylactic antibiotics. Prior Anticoagulants: The patient has taken no previous anticoagulant or antiplatelet agents. ASA Grade Assessment: II - A patient with mild systemic disease. After reviewing the risks and benefits, the patient was deemed in satisfactory condition to undergo the procedure. The anesthesia plan was to use monitored anesthesia care (MAC). Immediately prior to administration of medications, the patient was re-assessed for adequacy to receive sedatives. The heart rate, respiratory rate, oxygen saturations, blood pressure, adequacy of pulmonary ventilation, and response to care were monitored throughout the procedure. The physical status of the patient was re-assessed after the procedure. The Endoscope was introduced through the mouth, and advanced to the second part of duodenum. The upper GI endoscopy was accomplished without difficulty. The patient tolerated the procedure well. Findings: LA Grade A (one or more mucosal breaks less than 5 mm, not extending between tops of 2 mucosal folds) esophagitis with no bleeding was found 40 to 41 cm from the incisors. Biopsies were taken with a cold forceps for histology. Verification of patient identification for the specimen was done by the physician and nurse using the patient's name, date and medical record number. Estimated blood loss was minimal. Scattered moderate inflammation characterized by erythema, friability and granularity was found in the gastric body and in the gastric antrum. Biopsies were taken with a cold forceps for Helicobacter pylori testing. The duodenal bulb, second portion of the duodenum and third portion of the duodenum were normal. Impression: - LA Grade A reflux esophagitis. Biopsied. - Gastritis. Biopsied. - Normal duodenal bulb, second portion of the duodenum and third portion of the duodenum. Recommendation: - Patient has a contact number available for emergencies. The signs and symptoms of potential delayed complications were discussed with the patient. Return to normal activities tomorrow. Written discharge instructions were provided to the patient. - High fiber diet. - Continue present medications. - Await pathology results. - Follow an antireflux regimen. - Telephone GI clinic for pathology results in 2 weeks. - Return to GI clinic if persistent symptoms or new symptoms. - Return to primary care physician. Procedure Code(s): --- Professional --- 64655, Esophagogastroduodenoscopy, flexible, transoral; with biopsy, single or multiple Diagnosis Code(s): --- Professional --- K21.0, Gastro-esophageal reflux disease with esophagitis K29.70, Gastritis, unspecified, without bleeding R10.13, Epigastric pain CPT copyright 2019 [employer]. All rights reserved. The codes documented in this report are preliminary and upon surgical coder review may be revised to meet current compliance requirements. Branden Jaeger MD Branden Jaeger MD 07/25/2021 1:21:06 PM Electronically signed by Branden Jaeger MD Number of Addenda: 0 Note Initiated On: 07/25/2021 12:47 PM Estimated Blood Loss: Estimated blood loss was minimal.
--- NOTE | 2021-07-25 13:25 | ROOR ---
Patient Name: Nnamdi Sheehan Procedure Date: 07/25/2021 12:48 PM Date of : 1965 Age: 55 [facility]: [facility] Gender: Male Note Status: Finalized Procedure: Colonoscopy Indications: Screening for colorectal malignant neoplasm Providers: Branden Jaeger MD Referring MD: ROLA MICHAEL MD Requesting Provider: Medicines: Monitored Anesthesia Care Complications: No immediate complications. Procedure: Pre-Anesthesia Assessment: - Prior to the procedure, a History and Physical was performed, and patient medications and allergies were reviewed. The patient is competent. The risks and benefits of the procedure and the sedation options and risks were discussed with the patient. All questions were answered and informed consent was obtained. Patient identification and proposed procedure were verified by the physician, the nurse and the anesthesiologist in the procedure room. Mental Status Examination: alert and oriented. Airway Examination: normal oropharyngeal airway and neck mobility. Respiratory Examination: clear to auscultation. CV Examination: normal. Prophylactic Antibiotics: The patient does not require prophylactic antibiotics. Prior Anticoagulants: The patient has taken no previous anticoagulant or antiplatelet agents. ASA Grade Assessment: II - A patient with mild systemic disease. After reviewing the risks and benefits, the patient was deemed in satisfactory condition to undergo the procedure. The anesthesia plan was to use monitored anesthesia care (MAC). Immediately prior to administration of medications, the patient was re-assessed for adequacy to receive sedatives. The heart rate, respiratory rate, oxygen saturations, blood pressure, adequacy of pulmonary ventilation, and response to care were monitored throughout the procedure. The physical status of the patient was re-assessed after the procedure. The Colonoscope was introduced through the anus and advanced to the terminal ileum, with identification of the appendiceal orifice and IC valve. The colonoscopy was performed without difficulty. The patient tolerated the procedure well. The quality of the bowel preparation was good. The terminal ileum, ileocecal valve, appendiceal orifice, and rectum were photographed. Scope insertion time was 2 minutes. Scope withdrawal time was 9 minutes. The total duration of the procedure was 12 minutes. Findings: The perianal and digital rectal examinations were normal. The terminal ileum appeared normal. Two sessile polyps were found in the sigmoid colon and ascending colon. The polyps were 5 to 10 mm in size. These polyps were removed with a cold snare. Resection and retrieval were complete. To close a defect after polypectomy, one hemostatic clip was successfully placed. There was no bleeding at the end of the procedure. Verification of patient identification for the specimen was done by the physician and nurse using the patient's name, date and medical record number. Estimated blood loss was minimal. Non-bleeding external and internal hemorrhoids were found during retroflexion. The hemorrhoids were medium-sized. Impression: - The examined portion of the ileum was normal. - Two 5 to 10 mm polyps in the sigmoid colon and in the ascending colon, removed with a cold snare. Resected and retrieved. Clip was placed. - Non-bleeding external and internal hemorrhoids. Recommendation: - Patient has a contact number available for emergencies. The signs and symptoms of potential delayed complications were discussed with the patient. Return to normal activities tomorrow. Written discharge instructions were provided to the patient. - High fiber diet. - Continue present medications. - Await pathology results. - Repeat colonoscopy in 5 years for surveillance based on pathology results. - Telephone GI clinic for pathology results in 2 weeks. - Return to primary care physician. Procedure Code(s): --- Professional --- 53057, Colonoscopy, flexible; with removal of tumor(s), polyp(s), or other lesion(s) by snare technique Diagnosis Code(s): --- Professional --- Z12.11, Encounter for screening for malignant neoplasm of colon K64.8, Other hemorrhoids K63.5, Polyp of colon CPT copyright 2019 [employer]. All rights reserved. The codes documented in this report are preliminary and upon deputy sheriff generalist review may be revised to meet current compliance requirements. Branden Jaeger MD Branden Jaeger MD 07/25/2021 1:25:07 PM Electronically signed by Branden Jaeger MD Number of Addenda: 0 Note Initiated On: 07/25/2021 12:48 PM Estimated Blood Loss: Estimated blood loss was minimal.
[2021-07-25 13:53] VITALS: BP 134/71
== END 2021-07-25 14:05 | disposition home or self-care (01) ==
LOC: M OPP 10:28
PROVIDERS: ATTEND Internal Medicine Gastroenterology
DX: Z12.11 Encounter for screening for malignant neoplasm of colon (principal); D12.6 Benign neoplasm of colon, unspecified; K64.8 Other hemorrhoids; R10.13 Epigastric pain; K21.00 Gastro-esophageal reflux disease with esophagitis, without bleeding; K29.70 Gastritis, unspecified, without bleeding
CPT/HCPCS: 43239; 45385; 88305; J3010

== ENCOUNTER → 2024-12-29 | Outpatient (CLI) | payer OTHER ==
[~2024-12-29] MED LIST changes: -NS 1,000 ML IV ONE
== END ==
LOC: M RAD 15:42
PROVIDERS: ATTEND Family Medicine
DX: R53.83 Other fatigue (principal); I10 Essential (primary) hypertension; J44.9 Chronic obstructive pulmonary disease, unspecified; M54.30 Sciatica, unspecified side; M41.86 Other forms of scoliosis, lumbar region; M51.370 Other intervertebral disc degeneration, lumbosacral region with discogenic back pain only

== ENCOUNTER → 2025-01-13 | Outpatient (CLI) | payer OTHER ==
[2025-01-13 12:28] LABS: HEMATOCRIT 43.9 % (42.0-52.0); HEMOGLOBIN 14.7 g/dl (13.5-17.5); MEAN CORPUSCULAR HEMOGLOBIN 30.2 pg (27.0-33.0); MEAN CORPUSCULAR HGB CONC 33.5 g/dl (32.0-36.5); MEAN CORPUSCULAR VOLUME 90.3 fl (80.0-96.0); PLATELET COUNT, AUTOMATED 358 10^3/uL (150-450); RED BLOOD COUNT 4.86 10^6/uL (4.30-6.10); WHITE BLOOD COUNT 8.9 10^3/uL (4.0-10.0)
[2025-01-13 12:52] LABS: PROSTATIC SPECIFIC AG MONITOR 0.83 NG/ML (< 4.00)
[2025-01-13 12:54] LABS: ALBUMIN 3.9 G/DL (3.2-5.2); ALKALINE PHOSPHATASE 123 U/L (40-129); ALT/SGPT 21 U/L (7.0-40); AST/SGOT 18 U/L (<34); BILIRUBIN,TOTAL 0.4 MG/DL (0.3-1.2); BLOOD UREA NITROGEN 17 MG/DL (9-23); CALCIUM LEVEL 9.1 MG/DL (8.5-10.1); CARBON DIOXIDE LEVEL 24 MMOL/L (20-31); CHLORIDE LEVEL 108 MMOL/L (98-107); CHOLESTEROL LEVEL 229 MG/DL (<200); CHOLESTEROL RISK RATIO 5.16 (<5); CREATININE FOR GFR 0.73 MG/DL (0.70-1.30); GLOMERULAR FILTRATION RATE > 90.0 (>56); GLUCOSE, FASTING 94 MG/DL (60-100); HDL CHOLESTEROL 44.3 MG/DL (>40); LDL CHOLESTEROL 158.9 MG/DL (<100); NON-HDL-C 184.7 MG/DL; POTASSIUM SERUM 4.5 MMOL/L (3.5-5.1); SODIUM LEVEL 142 MMOL/L (136-145); TOTAL PROTEIN 7.2 G/DL (5.7-8.2); TRIGLYCERIDES LEVEL 129 MG/DL (<150)
[2025-01-13 12:56] LABS: THYROID STIMULATING HORMONE 1.245 uIU/ML (0.55-4.78); TOTAL 25(OH) VITAMIN D 21.6 NG/ML (20.0-100.0)
[2025-01-13 12:57] LABS: TESTOSTERONE 664 NG/DL (241-827)
[2025-01-13 13:05] LABS: HEMOGLOBIN A1c 5.7 % (4.0-6.0)
== END ==
LOC: M LAB 11:25
PROVIDERS: ATTEND Family Medicine
DX: D64.9 Anemia, unspecified (principal); R53.83 Other fatigue; E03.9 Hypothyroidism, unspecified